=== PATIENT | male | born 1935 | race African-American/Black ===

== ENCOUNTER 2017-01-31 14:16 | Inpatient (IN) | payer MEDICARE, OTHER ==
[~2017-01-31] VITALS: Ht 360.7 cm; Wt 89.5 kg
[~2017-01-31 14:16] MED LIST: AMLO2.5T45 PO; ATOR40TA70 PO; CALCIUM CHLORIDE 1GM/10ML SYR IV ONE; EPINEPHRINE 0.1MG/ML (1:10,000) 10ML SYR ONE; FURO-151 PO; GLYB5TAB7 PO; KDUR10 PO; LOSA50TA3 PO; SITA1TAB8 PO; SODIUM BICARBONATE 7.5% 0.9 MEQ/ML 50ML SYR IV ONE; SPIR25TA PO
[2017-01-31] MEDS ORDERED: SODIUM CHLORIDE 0.9% 500 ML IV ONE (14:45)
[2017-01-31] MEDS ORDERED: INSULIN REGULAR (DRIP) 100 UNITS in SODIUM CHLORIDE 0.9% 100 ML IV ONE (14:45)
[2017-01-31] MEDS ORDERED: INSULIN REGULAR (HUMULIN R) 300UNITS/3ML SUBCUT ONE ×2 (14:45→19:00)
[2017-01-31 15:29] LABS: HEMATOCRIT. 34.7 % (42.0-52.0); HEMOGLOBIN. 10.2 g/dL (14.0-18.0); MEAN CORPUSCULAR VOLUME 81.2 fL (80.0-94.0); MEAN PLATELET VOLUME 8.5 fl (7.4-10.4); PLATELET 273 x1000/uL (130-400); RED BLOOD CELL COUNT 4.27 mill/uL (4.7-6.1); RED CELL DISTRIBUTION WIDTH 15.9 % (11.6-14.6)
[2017-01-31 15:37] LABS: INR 1.1
[2017-01-31] MEDS ORDERED: INSULIN REGULAR (DRIP) 100 UNITS in SODIUM CHLORIDE 0.9% 99 ML IV PRN (15:45)
[2017-01-31] MEDS ORDERED: IPRATROPIUM/ALBUTEROL 0.5-3(2.5)MG/3ML NEB HHN ONE (16:15)
[2017-01-31 16:33] LABS: BETA HYDROXYBUTYRATE 0.7 mMol/L (0.0-0.3); CARBON DIOXIDE 13 mEq/L (21-32); CHLORIDE 105 mEq/L (98-107); TROPONIN I 0.35 ng/mL (0.00-0.04)
[2017-01-31 16:58] LABS: BG BASE EXCESS -21.5 mmol/L (-2.0-2.0); BG CARBOXYHEMOGLOBIN 0.2 % (0.5-1.5); BG DEOXYHEMOGLOBIN 25.3 % (0.0-5.0); BG FRACTION INSPIRED OXYGEN 32; BG HCO3 ACT 7.4 mmol/L (22.0-26.0); BG METHEMOGLOBIN 0.4 % (0.0-1.5); BG OXYGEN SATURATION 74.5 % (92.0-98.5); BG OXYHEMOGLOBIN 74.1 % (94.0-97.0); BG PH 7.057 (7.350-7.450); BG PO2 55.4 mmHg (75.0-100.0); BG SAMPLE SITE RIGHT BRACHIAL; BG TOTAL HEMOGLOBIN 11.3 g/dL (12.0-18.0); BG VENT MODE NASAL CANNULA
[2017-01-31 17:04] LABS: PLATELET ESTIMATE NORMAL
[2017-01-31] MEDS ORDERED: SODIUM BICARBONATE 8.4% 10MEQ/10ML SYR IV ONE ×2 (17:30→19:00)
[2017-01-31] MEDS ORDERED: SODIUM POLYSTYRENE SULFONATE 15 G/60 ML BOT PO NR (19:45)
[2017-01-31] MEDS ORDERED: DEXTROSE 50% WATER 50ML SYRINGE IV PRN (19:45)
[2017-01-31] MEDS ORDERED: SODIUM CHLORIDE 0.9% 250 ML IV ONE ×2 (20:15→23:00)
[2017-01-31] MEDS ORDERED: PIPERACILLIN/TAZ 2.25G PREMIX 50 ML IV ONE (20:30)
[2017-01-31] MEDS ORDERED: AZITHROMYCIN 500 MG in DEXT 5% WATER 250 ML IV SCH (20:30)
[2017-01-31 21:02] LABS: BG BASE EXCESS -22.4 mmol/L (-2.0-2.0); BG BILEVEL POS AIRWAY PRESSURE 15/5; BG CARBOXYHEMOGLOBIN 0.3 % (0.5-1.5); BG DEOXYHEMOGLOBIN 4.1 % (0.0-5.0); BG FRACTION INSPIRED OXYGEN 50; BG METHEMOGLOBIN 0.4 % (0.0-1.5); BG OXYGEN SATURATION 95.9 % (92.0-98.5); BG OXYHEMOGLOBIN 95.2 % (94.0-97.0); BG PCO2 20.9 mmHg (35.0-45.0); BG PH 7.075 (7.350-7.450); BG PO2 108.2 mmHg (75.0-100.0); BG SAMPLE SITE RIGHT RADIAL; BG TIDAL VOLUME(mL) 1300 mL; BG TOTAL HEMOGLOBIN 10.8 g/dL (12.0-18.0); BG VENT MODE MASK - BIPAP; BG VENT RATE 26 set
[2017-01-31 22:27] LABS: CREATINE KINASE MB FRACTION 9.4 ng/mL (0.5-3.6)
[2017-01-31 22:29] LABS: TROPONIN I 0.64 ng/mL (0.00-0.04)
[2017-01-31] MEDS ORDERED: ASPIRIN 325MG EC TABLET PO SCH (22:37)
[2017-01-31] MEDS ORDERED: SODIUM BICARBONATE 8.4% 1 MEQ/ML 50ML SYR IV SCH (23:00)
[2017-01-31] MEDS ORDERED: SODIUM BICARBONATE 8.4% 1 MEQ/ML 50ML SYR IV NR (23:00)
[2017-02-01] VITALS (33 sets, daily range): BP systolic 71–140; BP diastolic 18–123
[2017-02-01] MEDS: INSULIN LISPRO 100 UNITS/ML SUBCUT SCH ×2 (00:14→06:41)
[2017-02-01] MEDS: BLOOD SUGAR DIAGNOSTIC STRIP TEST SCH ×2 (01:00→06:20)
[2017-02-01] MEDS: SODIUM BICARBONATE 150 MEQ in DEXTROSE 5% WATER 1,000 ML IV SCH ×2 (01:22→01:43)
[2017-02-01] MEDS ORDERED: NOREPINEPHRINE 8 MG in DEXT 5% WATER 242 ML IV PRN (01:30)
[2017-02-01] MEDS ORDERED: SODIUM POLYSTYRENE SULFONATE 15 G/60 ML BOT PO SCH (01:30)
[2017-02-01] MEDS: PIPERACILLIN/TAZ 2.25G PREMIX 50 ML IV SCH ×2 (03:04→08:20)
[2017-02-01] MEDS ORDERED: DOPAMINE 400MG PREMIX 250 ML IV PRN (03:15)
[2017-02-01] MEDS: DOPAMINE 800MG PREMIX 250 ML IV PRN ×2 (03:21→06:40)
[2017-02-01] MEDS ORDERED: AZITHROMYCIN 500 MG in DEXT 5% WATER 250 ML IV SCH (04:00)
[2017-02-01 05:18] LABS: BASOPHILS % 0.6 % (0.0-2.0); HEMATOCRIT. 31.9 % (42.0-52.0); HEMOGLOBIN. 9.2 g/dL (14.0-18.0); LYMPHOCYTES % 7.9 % (20.0-50.0); MEAN CORPUSCULAR VOLUME 83.5 fL (80.0-94.0); MEAN PLATELET VOLUME 9.7 fl (7.4-10.4); MONOCYTES % 10.7 % (2.0-8.0); NEUTROPHILS % 80.8 % (40.0-76.0); PLATELET 320 x1000/uL (130-400); RED BLOOD CELL COUNT 3.82 mill/uL (4.7-6.1); RED CELL DISTRIBUTION WIDTH 16.6 % (11.6-14.6)
[2017-02-01 05:20] LABS: INR 1.2
[2017-02-01 05:38] LABS: CHLORIDE 101 mEq/L (98-107); CREATINE KINASE MB FRACTION 13.2 ng/mL (0.5-3.6); PHOSPHORUS 7.8 mg/dL (2.5-4.9)
[2017-02-01] MEDS ORDERED: SODIUM BICARBONATE 8.4% 1 MEQ/ML 50ML SYR IV NR ×2 (06:15→06:30)
[2017-02-01] MEDS ORDERED: SODIUM BICARBONATE 8.4% 1 MEQ/ML 50ML SYR IV ONE (06:30)
[2017-02-01 06:39] LABS: CARBON DIOXIDE 9 mEq/L (21-32)
[2017-02-01] MEDS: PHENYLEPHRINE 20 MG in DEXT 5% WATER 248 ML IV PRN ×2 (06:39→09:22)
[2017-02-01 06:59] LABS: HEPATITIS B SURFACE ANTIGEN NEGATIVE
[2017-02-01] MEDS ORDERED: CEFTRIAXONE 1 G PREMIX 50 ML IV SCH (07:00)
[2017-02-01 07:27] LABS: BG BASE EXCESS -19.5 mmol/L (-2.0-2.0); BG CARBOXYHEMOGLOBIN 0.3 % (0.5-1.5); BG DEOXYHEMOGLOBIN 6.7 % (0.0-5.0); BG HCO3 ACT 8.8 mmol/L (22.0-26.0); BG OXYGEN SATURATION 93.3 % (92.0-98.5); BG PH 7.099 (7.350-7.450); BG PO2 83.9 mmHg (75.0-100.0); BG SAMPLE SITE RIGHT BRACHIAL; BG TOTAL HEMOGLOBIN 10.4 g/dL (12.0-18.0); BG VENT MODE MASK - BIPAP; BG VENT RATE 20 set
[2017-02-01 07:27] LABS: HEPATITIS B CORE AB IGM NEGATIVE
[2017-02-01 07:28] LABS: HEPATITIS A AB IGM NEGATIVE (NEGATIVE)
[2017-02-01] MEDS ORDERED: SODIUM BICARBONATE 8.4% 1 MEQ/ML 50ML SYR IV SCH ×2 (08:00)
[2017-02-01] MEDS ORDERED: LIDOCAINE HCL 1% 20ML VIAL (Pyxis) INJ ONE (08:24)
[2017-02-01] MEDS ORDERED: CITRIC ACID/SODIUM CITRATE SOLN 30ML UDC PO SCH (09:00)
[2017-02-01] MEDS ORDERED: INSULIN REGULAR (HUMULIN R) 300UNITS/3ML IV NR (09:38)
[2017-02-01] MEDS ORDERED: EPINEPHRINE 1 MG in SODIUM CHLORIDE 0.9% 249 ML IV PRN ×4 (09:45)
[2017-02-01] MEDS ORDERED: EPINEPHRINE 1 MG in SODIUM CHLORIDE 0.9% 250 ML IV ONE (09:45)
== END 2017-02-01 09:50 | disposition expired | DRG 871 ==
LOC: ER 14:29 → MICUNO 17:21 → EDBEDREQ 17:24 → EDBEDREQSVC 17:24 → EDBEDREQTM 17:24 → SUPCPDRO 18:11 → ENRESERV 22:07 → MICUSO 02-01 07:00
PROVIDERS: ADMIT Internal Medicine Critical Care Medicine; ATTEND Internal Medicine Critical Care Medicine
PROC: 5A12012 Performance of Cardiac Output, Single, Manual (ICD-10-PCS; principal; 2017-02-01)
PROC: 5A1935Z Respiratory Ventilation, Less than 24 Consecutive Hours (ICD-10-PCS; 2017-02-01)
PROC: 0BH17EZ Insertion of Endotracheal Airway into Trachea, Via Natural or Artificial Opening (ICD-10-PCS; 2017-02-01)
PROC: 02HV33Z Insertion of Infusion Device into Superior Vena Cava, Percutaneous Approach (ICD-10-PCS; 2017-02-01)
PROC: B548ZZA Ultrasonography of Superior Vena Cava, Guidance (ICD-10-PCS; 2017-02-01)
DX: A41.9 Sepsis, unspecified organism (principal); J18.1 Lobar pneumonia, unspecified organism; I46.9 Cardiac arrest, cause unspecified; J96.00 Acute respiratory failure, unspecified whether with hypoxia or hypercapnia; R65.21 Severe sepsis with septic shock; I50.23 Acute on chronic systolic (congestive) heart failure; G92 Toxic encephalopathy; I13.0 Hypertensive heart and chronic kidney disease with heart failure and stage 1 through stage 4 chronic kidney disease, or unspecified chronic kidney disease; N17.9 Acute kidney failure, unspecified; E87.2 Acidosis; E11.22 Type 2 diabetes mellitus with diabetic chronic kidney disease; E87.5 Hyperkalemia; F03.90 Unspecified dementia, unspecified severity, without behavioral disturbance, psychotic disturbance, mood disturbance, and anxiety; I25.5 Ischemic cardiomyopathy; I25.10 Atherosclerotic heart disease of native coronary artery without angina pectoris; N18.3 Chronic kidney disease, stage 3 (moderate); I48.91 Unspecified atrial fibrillation; D64.9 Anemia, unspecified; E78.5 Hyperlipidemia, unspecified; Z95.5 Presence of coronary angioplasty implant and graft; Z95.810 Presence of automatic (implantable) cardiac defibrillator; Z82.49 Family history of ischemic heart disease and other diseases of the circulatory system; Z83.3 Family history of diabetes mellitus; Z79.899 Other long term (current) drug therapy; I25.2 Old myocardial infarction; E11.65 Type 2 diabetes mellitus with hyperglycemia
CPT/HCPCS: 31500; 36415; 36556; 36600; 71010; 76770; 76937; 80053; 82010; 82375; 82553; 82805; 82962; 83036; 83605; 83735; 83880; 83930; 84100; 84132; 84484; 85025; 85610; 86705; 86709; 86803; 87040; 87070; 87340; 92950; 93005; 93970; 94640; 94660; 96361; 96365; 96372; 96375; 99291; C1752; J0171; J0456; J0696; J1265; J1815; J2370; J2543; J3490; J7030; J7040; J7050; J7060; J7070; J7620; A4315